=== PATIENT | male | born 1950 | race Caucasian/White ===

== ENCOUNTER 2020-01-16 11:50 | Inpatient (IN) | payer MEDICARE ==
[~2020-01-16] VITALS: Ht 188 cm; Wt 97.1 kg
[2020-01-16] MEDS ORDERED: FERR236T3 PO (12:08)
[2020-01-16] MEDS ORDERED: FOLI20CA PO (12:08)
[2020-01-16] MEDS ORDERED: TRAM50TA3 PO (12:08)
[2020-01-16] MEDS ORDERED: TAMS-11 PO (12:08)
[2020-01-16] MEDS ORDERED: PRED-431 PO (12:08)
[2020-01-16] MEDS ORDERED: CETI-338 PO (12:08)
[2020-01-16] MEDS ORDERED: SIMV-46 PO (12:08)
[2020-01-16] MEDS ORDERED: FISH GT (12:08)
[2020-01-16] MEDS ORDERED: MESA500C PO (12:08)
[2020-01-16] MEDS ORDERED: MULT-1241 PO (12:08)
[2020-01-16] MEDS ORDERED: ONDANSETRON HCL 4MG/2ML INJ IV STA (12:44)
[2020-01-16] MEDS ORDERED: SODIUM CHLORIDE 0.9% 1,000 ML IV ONE (12:44)
[2020-01-16] MEDS ORDERED: MORPHINE SULFATE 4 MG/ML CPJ (NOT FOR IM USE) IV STA (12:44)
[2020-01-16 13:05] LABS: BASOPHILS % 0.4 % (0.0-2.0); EOSINOPHILS % 1.2 % (0.0-5.0); HEMOGLOBIN. 11.8 g/dL (14.0-18.0); LYMPHOCYTES % 7.5 % (20.0-50.0); MEAN CORPUSCULAR HEMOGLOBIN 31.8 pg (28.0-32.0); MEAN CORPUSCULAR VOLUME 91.8 fL (80.0-94.0); MONOCYTES % 9.9 % (2.0-8.0); PLATELET 230 x1000/uL (130-400); RED CELL DISTRIBUTION WIDTH 12.9 % (11.6-14.6)
[2020-01-16 13:06] LABS: CLARITY URINE CLEAR (CLEAR); COLOR URINE YELLOW (YELLOW); KETONES URINE TRACE (NEGATIVE); LEUKOCYTE ESTERASE URINE 1+ (NEGATIVE); NITRITE URINE NEGATIVE (NEGATIVE); OCCULT BLOOD URINE NEGATIVE (NEGATIVE); PROTEIN URINE NEGATIVE (NEGATIVE); SPECIFIC GRAVITY URINE 1.026 (1.005-1.030); UROBILINOGEN URINE 0.2 E.U./dL (0.2-1.0)
[2020-01-16 13:08] LABS: CHLORIDE 110 mEq/L (98-107)
[2020-01-16 13:11] LABS: INR 1.1; PROTHROMBIN TIME 11.2 sec (9.6-11.0)
[2020-01-16] MEDS ORDERED: IOHEXOL-350 100 ML BOTTLE ONE (15:38)
[2020-01-16] MEDS ORDERED: ONDANSETRON HCL 4MG/2ML INJ IV PRN (16:00)
[2020-01-16] MEDS ORDERED: MORPHINE SULFATE 2 MG/ML CPJ (NOT FOR IM USE) IV PRN (16:00)
[2020-01-16] MEDS ORDERED: ACETAMINOPHEN 325MG TABLET PO PRN (16:00)
[2020-01-16] MEDS ORDERED: LEVOFLOXACIN 500MG PREMIX 100 ML IV SCH (17:00)
[2020-01-16] MEDS ORDERED: METRONIDAZOLE 500 MG PREMIX 100 ML IV SCH (17:00)
[2020-01-16 20:58] LABS: HEMATOCRIT 33.5 % (42.0-52.0); HEMOGLOBIN 11.6 g/dL (14.0-18.0); MEAN CORPUSCULAR HEMOGLOBIN 31.8 pg (28.0-32.0); PLATELET 226 x1000/uL (130-400); RED BLOOD CELL COUNT 3.64 mill/uL (4.7-6.1); RED CELL DISTRIBUTION WIDTH 13.3 % (11.6-14.6)
[2020-01-16 21:04] LABS: CHLORIDE 109 mEq/L (98-107)
[2020-01-16 21:10] LABS: TOTAL IRON BINDING CAPACITY 264 ug/dL (250-450)
[2020-01-16 22:40] VITALS: BP 158/84
[2020-01-16] MEDS ORDERED: IOHEXOL-300 100 ML BOTTLE ONE (23:03)
[2020-01-17] VITALS: BP_SYST 158; BP_SYST 161; BP_DIAS 83; BP_DIAS 84
[2020-01-17] MEDS: DEXT 5%/0.45% NACL 1000ML 1,000 ML IV SCH ×3 (00:03→17:30)
[2020-01-17] MEDS: METHYLPREDNISOLONE SOD SUCC 125 MG/2 ML VIAL IV SCH ×4 (00:13→21:38)
[2020-01-17] MEDS: MESALAMINE 400 MG CAPSULE.DR PO SCH ×4 (00:13→21:38)
[2020-01-17] MEDS: METRONIDAZOLE 500 MG PREMIX 100 ML IV SCH ×3 (01:15→19:25)
[2020-01-17 04:00] VITALS: BP 159/65
[2020-01-17 06:54] LABS: HEMATOCRIT. 33.8 % (42.0-52.0); HEMOGLOBIN. 11.8 g/dL (14.0-18.0); MEAN CORPUSCULAR HEMOGLOBIN 31.8 pg (28.0-32.0); MEAN CORPUSCULAR VOLUME 91.1 fL (80.0-94.0); MEAN PLATELET VOLUME 7.3 fl (7.4-10.4); PLATELET 219 x1000/uL (130-400); RED BLOOD CELL COUNT 3.71 mill/uL (4.7-6.1); RED CELL DISTRIBUTION WIDTH 13.1 % (11.6-14.6)
[2020-01-17 07:07] LABS: CHLORIDE 109 mEq/L (98-107)
[2020-01-17 08:00] VITALS: BP 133/74
[2020-01-17 12:00] VITALS: BP 146/78
[2020-01-17 16:00] VITALS: BP 143/70
[2020-01-17 20:00] VITALS: BP 146/81
[2020-01-17] MEDS: LEVOFLOXACIN 500MG PREMIX 100 ML IV SCH (20:44)
[2020-01-18] VITALS (7 sets, daily range): BP systolic 128–151; BP diastolic 70–83
[2020-01-18] MEDS: METRONIDAZOLE 500 MG PREMIX 100 ML IV SCH ×3 (02:48→17:19)
[2020-01-18 06:13] LABS: CHLORIDE 108 mEq/L (98-107)
[2020-01-18 06:23] LABS: HEMATOCRIT. 33.7 % (42.0-52.0); HEMOGLOBIN. 11.6 g/dL (14.0-18.0); MEAN CORPUSCULAR HEMOGLOBIN 31.6 pg (28.0-32.0); MEAN CORPUSCULAR VOLUME 91.7 fL (80.0-94.0); MEAN PLATELET VOLUME 7.7 fl (7.4-10.4); PLATELET 227 x1000/uL (130-400); RED BLOOD CELL COUNT 3.68 mill/uL (4.7-6.1); RED CELL DISTRIBUTION WIDTH 13.1 % (11.6-14.6)
[2020-01-18] MEDS: MESALAMINE 400 MG CAPSULE.DR PO SCH ×3 (07:02→21:47)
[2020-01-18] MEDS: METHYLPREDNISOLONE SOD SUCC 125 MG/2 ML VIAL IV SCH ×2 (07:03→17:19)
[2020-01-18] MEDS: DEXT 5%/0.45% NACL 1000ML 1,000 ML IV SCH ×2 (08:00→21:47)
[2020-01-18 09:26] LABS: PLATELET ESTIMATE NORMAL
[2020-01-18] MEDS: LEVOFLOXACIN 500MG PREMIX 100 ML IV SCH (21:47)
[2020-01-19] VITALS: BP 151/72
[2020-01-19 00:59] LABS: PLATELET ESTIMATE NORMAL
[2020-01-19] MEDS: METRONIDAZOLE 500 MG PREMIX 100 ML IV SCH ×3 (02:20→17:52)
[2020-01-19 04:00] VITALS: BP 146/79
[2020-01-19] MEDS: MESALAMINE 400 MG CAPSULE.DR PO SCH ×3 (06:31→22:00)
[2020-01-19] MEDS: METHYLPREDNISOLONE SOD SUCC 125 MG/2 ML VIAL IV SCH ×3 (06:32→22:01)
[2020-01-19 07:15] LABS: HEMATOCRIT. 34.9 % (42.0-52.0); HEMOGLOBIN. 11.9 g/dL (14.0-18.0); MEAN CORPUSCULAR HEMOGLOBIN 31.7 pg (28.0-32.0); MEAN CORPUSCULAR VOLUME 92.6 fL (80.0-94.0); MEAN PLATELET VOLUME 7.6 fl (7.4-10.4); PLATELET 244 x1000/uL (130-400); RED BLOOD CELL COUNT 3.77 mill/uL (4.7-6.1)
[2020-01-19 07:23] LABS: CHLORIDE 110 mEq/L (98-107)
[2020-01-19 08:00] VITALS: BP 118/79
[2020-01-19] MEDS: DEXT 5%/0.45% NACL 1000ML 1,000 ML IV SCH ×2 (10:06→22:00)
[2020-01-19 10:29] LABS: PLATELET ESTIMATE NORMAL
[2020-01-19 12:00] VITALS: BP 134/79
[2020-01-19 12:29] LABS: HEMATOCRIT 33.8 % (42.0-52.0); HEMOGLOBIN 11.5 g/dL (14.0-18.0)
[2020-01-19 16:00] VITALS: BP 162/86
[2020-01-19 20:00] VITALS: BP 139/79
[2020-01-19] MEDS: LEVOFLOXACIN 500MG PREMIX 100 ML IV SCH (21:59)
[2020-01-20] VITALS: BP 134/76
[2020-01-20] MEDS: METRONIDAZOLE 500 MG PREMIX 100 ML IV SCH ×2 (02:29→09:45)
[2020-01-20 04:00] VITALS: BP 143/80
[2020-01-20] MEDS: MESALAMINE 400 MG CAPSULE.DR PO SCH (06:18)
[2020-01-20] MEDS: METHYLPREDNISOLONE SOD SUCC 125 MG/2 ML VIAL IV SCH (06:20)
[2020-01-20 08:00] VITALS: BP 145/75
[2020-01-20 11:15] LABS: HEMATOCRIT. 34.8 % (42.0-52.0); MEAN CORPUSCULAR HEMOGLOBIN 31.9 pg (28.0-32.0); MEAN CORPUSCULAR VOLUME 92.1 fL (80.0-94.0); MEAN PLATELET VOLUME 7.6 fl (7.4-10.4); PLATELET 214 x1000/uL (130-400); RED BLOOD CELL COUNT 3.77 mill/uL (4.7-6.1); RED CELL DISTRIBUTION WIDTH 13.1 % (11.6-14.6)
[2020-01-20 11:29] LABS: CHLORIDE 104 mEq/L (98-107)
[2020-01-20 12:00] VITALS: BP 136/79
[2020-01-20] MEDS ORDERED: PRED-276 MT (12:36)
[2020-01-20] MEDS ORDERED: LEVO750T21 MT (12:36)
[2020-01-20] MEDS ORDERED: METR500T MT (12:36)
[2020-01-20 13:16] VITALS: BP 134/75
[2020-01-20] MEDS: DEXT 5%/0.45% NACL 1000ML 1,000 ML IV SCH (13:21)
[2020-01-20 14:02] LABS: PLATELET ESTIMATE NORMAL
== END 2020-01-20 14:19 | disposition home or self-care (01) | DRG 385 ==
LOC: ER 11:50 → 6EST 14:50 → EDBEDREQSVC 15:11 → EDBEDREQ 15:11 → ENRESERV 21:29
PROVIDERS: ADMIT Internal Medicine; ATTEND Internal Medicine
DX: K51.911 Ulcerative colitis, unspecified with rectal bleeding (principal); K57.33 Diverticulitis of large intestine without perforation or abscess with bleeding; E87.8 Other disorders of electrolyte and fluid balance, not elsewhere classified; E78.5 Hyperlipidemia, unspecified; N40.0 Benign prostatic hyperplasia without lower urinary tract symptoms; D64.9 Anemia, unspecified; E78.00 Pure hypercholesterolemia, unspecified; R16.0 Hepatomegaly, not elsewhere classified; Z79.899 Other long term (current) drug therapy
CPT/HCPCS: 36415; 71045; 74177; 78278; 80048; 80053; 81003; 83540; 83550; 83605; 85014; 85018; 85025; 85027; 85651; 93005; 99285; J1956; J2270; J2405; J2930; J3490; J7030; Q9967

== ENCOUNTER 2020-02-09 11:36 | Inpatient (IN) | payer MEDICARE, MEDICAID ==
[~2020-02-09] VITALS: Ht 188 cm; Wt 100.0 kg
[~2020-02-09 11:36] MED LIST: CETI-338 PO; FERR236T3 PO; FISH GT; FOLI20CA PO; LEVO750T21 MT; MESA500C PO; METR500T MT; MULT-1241 PO; PRED-276 MT; PRED-431 PO; SIMV-46 PO; TAMS-11 PO; TRAM50TA3 PO
[2020-02-09 12:29] LABS: CHLORIDE 104 mEq/L (98-107)
[2020-02-09 12:31] LABS: HEMATOCRIT. 37.5 % (42.0-52.0); HEMOGLOBIN. 12.7 g/dL (14.0-18.0); MEAN CORPUSCULAR VOLUME 88.8 fL (80.0-94.0); MEAN PLATELET VOLUME 7.2 fl (7.4-10.4); PLATELET 334 x1000/uL (130-400); RED BLOOD CELL COUNT 4.22 mill/uL (4.7-6.1); RED CELL DISTRIBUTION WIDTH 13.3 % (11.6-14.6)
[2020-02-09 12:58] LABS: INR 1.2; PROTHROMBIN TIME 12.4 sec (9.6-11.0)
[2020-02-09 13:05] LABS: PLATELET ESTIMATE NORMAL
[2020-02-09 14:24] LABS: CLARITY URINE CLOUDY (CLEAR); COLOR URINE AMBER (YELLOW); KETONES URINE 1+ (NEGATIVE); LEUKOCYTE ESTERASE URINE 2+ (NEGATIVE); NITRITE URINE POSITIVE (NEGATIVE); OCCULT BLOOD URINE NEGATIVE (NEGATIVE); PH URINE 5.5 (4.5-8.0); PROTEIN URINE 2+ (NEGATIVE); SPECIFIC GRAVITY URINE 1.026 (1.005-1.030)
[2020-02-09] MEDS ORDERED: IOHEXOL-300 100 ML BOTTLE ONE (15:54)
[2020-02-09] MEDS ORDERED: DIPHENHYDRAMINE 50MG/ML VIAL IV PRN (16:15)
[2020-02-09] MEDS ORDERED: CLONIDINE 0.1MG TABLET PO PRN (16:15)
[2020-02-09] MEDS ORDERED: HYDRALAZINE 20MG/ML VIAL IV PRN (16:15)
[2020-02-09] MEDS ORDERED: GUAIFENESIN 200MG/10ML SUGAR FREE UDC PO PRN (16:15)
[2020-02-09] MEDS ORDERED: MAGNESIUM/ALUMINUM HYDROXIDE/SIMETHICONE 30ML UDC PO PRN (16:15)
[2020-02-09] MEDS ORDERED: IPRATROPIUM/ALBUTEROL 0.5-3(2.5)MG/3ML NEB NEB PRN (16:15)
[2020-02-09] MEDS ORDERED: MORPHINE SULFATE 2 MG/ML CPJ (NOT FOR IM USE) IV PRN (16:15)
[2020-02-09] MEDS ORDERED: ACETAMINOPHEN 325MG TABLET PO PRN (16:15)
[2020-02-09] MEDS ORDERED: ONDANSETRON HCL 4MG/2ML INJ IV PRN (16:15)
[2020-02-09] MEDS ORDERED: LORAZEPAM 2MG/ML CPJ IV PRN (16:15)
[2020-02-09] MEDS ORDERED: HYDRALAZINE 10 MG in SODIUM CHLORIDE 0.9% 49.5 ML IV PRN (16:30)
[2020-02-09] MEDS: FAMOTIDINE 20MG/2ML VIAL IV SCH (17:01)
[2020-02-09] MEDS: DEXT 5%/0.45% NACL 1000ML 1,000 ML IV SCH (17:01)
[2020-02-09 17:49] LABS: AMYLASE 336 IU/L (25-115)
[2020-02-09] MEDS ORDERED: LEVOFLOXACIN 500MG PREMIX 100 ML IV SCH (18:00)
[2020-02-09] MEDS: MESALAMINE 400 MG CAPSULE.DR PO SCH (18:51)
[2020-02-09 19:26] LABS: HEMATOCRIT 37.1 % (42.0-52.0); HEMOGLOBIN 12.5 g/dL (14.0-18.0)
[2020-02-09] MEDS: METRONIDAZOLE 500 MG PREMIX 100 ML IV SCH (19:56)
[2020-02-09 20:00] VITALS: BP 109/67
[2020-02-09 20:34] LABS: HEMATOCRIT. 35.2 % (42.0-52.0); HEMOGLOBIN. 11.8 g/dL (14.0-18.0); MEAN CORPUSCULAR HEMOGLOBIN 30.3 pg (28.0-32.0); MEAN CORPUSCULAR VOLUME 90.2 fL (80.0-94.0); MEAN PLATELET VOLUME 6.8 fl (7.4-10.4); PLATELET 317 x1000/uL (130-400); RED BLOOD CELL COUNT 3.91 mill/uL (4.7-6.1); RED CELL DISTRIBUTION WIDTH 13.5 % (11.6-14.6)
[2020-02-09] MEDS: CEFAZOLIN 1000MG PREMIX 50 ML IV SCH (21:16)
[2020-02-09] MEDS ORDERED: SODIUM CHLORIDE 0.45% 500 ML IV NR (21:30)
[2020-02-09 21:47] LABS: PLATELET ESTIMATE NORMAL
[2020-02-09 23:41] LABS: CHLORIDE 104 mEq/L (98-107)
[2020-02-09 23:45] LABS: AMYLASE 182 IU/L (25-115)
[2020-02-10] VITALS (7 sets, daily range): BP systolic 101–138; BP diastolic 51–85
[2020-02-10] MEDS: DEXT 5%/0.45% NACL 1000ML 1,000 ML IV SCH ×3 (02:30→21:38)
[2020-02-10] MEDS ORDERED: HYDRALAZINE 20MG/ML VIAL IV PRN (02:45)
[2020-02-10] MEDS: METRONIDAZOLE 500 MG PREMIX 100 ML IV SCH ×3 (03:29→19:44)
[2020-02-10] MEDS: MESALAMINE 400 MG CAPSULE.DR PO SCH ×3 (09:00→18:45)
[2020-02-10] MEDS: FAMOTIDINE 20MG/2ML VIAL IV SCH (09:00)
[2020-02-10] MEDS: CEFAZOLIN 1000MG PREMIX 50 ML IV SCH ×2 (09:00→21:37)
[2020-02-10] MEDS: ERYTHROMYCIN BASE 0.5% OPHTH OINT 3.5GM BOTHEYE SCH ×2 (13:43→21:51)
[2020-02-10 13:56] LABS: HEMATOCRIT. 33.7 % (42.0-52.0); HEMOGLOBIN. 11.4 g/dL (14.0-18.0); MEAN CORPUSCULAR HEMOGLOBIN 30.1 pg (28.0-32.0); MEAN CORPUSCULAR VOLUME 89.3 fL (80.0-94.0); MEAN PLATELET VOLUME 7.1 fl (7.4-10.4); PLATELET 256 x1000/uL (130-400); RED BLOOD CELL COUNT 3.77 mill/uL (4.7-6.1); RED CELL DISTRIBUTION WIDTH 13.7 % (11.6-14.6)
[2020-02-10 14:06] LABS: CHLORIDE 105 mEq/L (98-107)
[2020-02-10 14:10] LABS: CHLORIDE 105 mEq/L (98-107)
[2020-02-10 14:15] LABS: AMYLASE 378 IU/L (25-115)
[2020-02-10 14:17] LABS: LDL CHOLESTEROL 44 mg/dL (5-100)
[2020-02-10 14:18] LABS: HDL CHOLESTEROL 36 mg/dL (40-59)
[2020-02-10 14:19] LABS: PLATELET ESTIMATE NORMAL
[2020-02-10] MEDS ORDERED: ACETAMINOPHEN 325MG TABLET PO PRN ×2 (19:15→20:15)
[2020-02-10] MEDS ORDERED: POTASSIUM CHLORIDE 20MEQ TABLET SR PO NR (21:00)
[2020-02-11] VITALS: BP 141/72
[2020-02-11 04:00] VITALS: BP 138/72
[2020-02-11] MEDS: METRONIDAZOLE 500 MG PREMIX 100 ML IV SCH ×3 (04:12→20:41)
[2020-02-11] MEDS: ERYTHROMYCIN BASE 0.5% OPHTH OINT 3.5GM BOTHEYE SCH ×3 (06:31→21:40)
[2020-02-11 07:14] LABS: CHLORIDE 107 mEq/L (98-107)
[2020-02-11 07:43] VITALS: BP 119/70
[2020-02-11] MEDS: FAMOTIDINE 20MG/2ML VIAL IV SCH (09:24)
[2020-02-11] MEDS: DEXT 5%/0.45% NACL 1000ML 1,000 ML IV SCH ×2 (09:24→18:30)
[2020-02-11] MEDS: CEFAZOLIN 1000MG PREMIX 50 ML IV SCH ×2 (09:24→21:40)
[2020-02-11] MEDS: MESALAMINE 400 MG CAPSULE.DR PO SCH ×3 (09:24→17:48)
[2020-02-11 11:21] LABS: HEMATOCRIT. 29.6 % (42.0-52.0); HEMOGLOBIN. 10.1 g/dL (14.0-18.0); MEAN CORPUSCULAR VOLUME 87.7 fL (80.0-94.0); MEAN PLATELET VOLUME 6.7 fl (7.4-10.4); PLATELET 252 x1000/uL (130-400); RED BLOOD CELL COUNT 3.37 mill/uL (4.7-6.1); RED CELL DISTRIBUTION WIDTH 13.4 % (11.6-14.6)
[2020-02-11 11:32] LABS: AMYLASE 252 IU/L (25-115)
[2020-02-11 11:56] LABS: CHLORIDE 108 mEq/L (98-107)
[2020-02-11 11:59] VITALS: BP 115/69
[2020-02-11] MEDS ORDERED: POTASSIUM CHLORIDE INJ 40 MEQ in DEXT 5% WATER 250 ML IV NR (13:00)
[2020-02-11 13:07] LABS: INR 1.2; PARTIAL THROMBOPLASTIN TIME 30.2 sec (23.4-31.0)
[2020-02-11 14:19] LABS: PLATELET ESTIMATE NORMAL
[2020-02-11 15:40] VITALS: BP 109/68
[2020-02-11] MEDS ORDERED: SORBITOL 70% SOLN 30ML PO NR ×2 (16:00→20:00)
[2020-02-11] MEDS: MORPHINE SULFATE 4 MG/ML CPJ (NOT FOR IM USE) IV PRN (17:50)
[2020-02-11 20:00] VITALS: BP 112/64
[2020-02-12] VITALS: BP 110/71
[2020-02-12] MEDS ORDERED: SORBITOL 70% SOLN 30ML PO NR
[2020-02-12 04:00] VITALS: BP 118/70
[2020-02-12] MEDS: METRONIDAZOLE 500 MG PREMIX 100 ML IV SCH ×3 (04:26→20:15)
[2020-02-12] MEDS: DEXT 5%/0.45% NACL 1000ML 1,000 ML IV SCH ×2 (04:27→14:18)
[2020-02-12] MEDS: ERYTHROMYCIN BASE 0.5% OPHTH OINT 3.5GM BOTHEYE SCH ×3 (06:01→21:29)
[2020-02-12] MEDS ORDERED: NA PHOS,M-B/NA PHOS,DI-BA ENEMA 118ML PR NR (07:00)
[2020-02-12] MEDS: MESALAMINE 400 MG CAPSULE.DR PO SCH ×3 (07:50→17:50)
[2020-02-12 07:52] VITALS: BP 109/71
[2020-02-12] MEDS: FAMOTIDINE 20MG/2ML VIAL IV SCH (08:59)
[2020-02-12] MEDS: CEFAZOLIN 1000MG PREMIX 50 ML IV SCH ×2 (09:54→21:29)
[2020-02-12] MEDS: MORPHINE SULFATE 4 MG/ML CPJ (NOT FOR IM USE) IV PRN (09:59)
[2020-02-12 12:00] VITALS: BP 115/68
[2020-02-12] MEDS ORDERED: POTASSIUM CHLORIDE 20MEQ TABLET SR PO NR (13:36)
[2020-02-12 16:00] VITALS: BP 120/72
[2020-02-12] MEDS ORDERED: FENTANYL CITRATE/PF 50MCG/ML 2ML VIAL IV PRN (17:39)
[2020-02-12] MEDS ORDERED: MIDAZOLAM HCL 2 MG/2 ML VIAL IV PRN (17:41)
[2020-02-12] MEDS ORDERED: MIDAZOLAM HCL 5 MG/5 ML VIAL ONE (17:42)
[2020-02-12] MEDS ORDERED: FENTANYL CITRATE/PF 50MCG/ML 2ML VIAL ONE (17:42)
[2020-02-12 20:50] VITALS: BP 135/77
[2020-02-12] MEDS: METHYLPREDNISOLONE SOD SUCC 125 MG/2 ML VIAL IV SCH (21:29)
[2020-02-13 00:41] VITALS: BP 117/77
[2020-02-13] MEDS: DEXT 5%/0.45% NACL 1000ML 1,000 ML IV SCH ×3 (00:46→20:09)
[2020-02-13] MEDS: METRONIDAZOLE 500 MG PREMIX 100 ML IV SCH (04:08)
[2020-02-13 04:54] VITALS: BP 131/70
[2020-02-13] MEDS: METHYLPREDNISOLONE SOD SUCC 125 MG/2 ML VIAL IV SCH ×3 (06:06→21:18)
[2020-02-13] MEDS: ERYTHROMYCIN BASE 0.5% OPHTH OINT 3.5GM BOTHEYE SCH ×3 (06:18→21:18)
[2020-02-13 08:00] VITALS: BP 124/77
[2020-02-13] MEDS: FAMOTIDINE 20MG/2ML VIAL IV SCH (08:26)
[2020-02-13] MEDS: CEFAZOLIN 1000MG PREMIX 50 ML IV SCH ×2 (08:26→20:09)
[2020-02-13] MEDS: MESALAMINE 400 MG CAPSULE.DR PO SCH ×3 (08:26→17:56)
[2020-02-13 16:00] VITALS: BP 122/74
[2020-02-13 20:00] VITALS: BP 133/71
[2020-02-14] VITALS: BP 136/75
[2020-02-14 04:00] VITALS: BP 138/71
[2020-02-14] MEDS: METHYLPREDNISOLONE SOD SUCC 125 MG/2 ML VIAL IV SCH ×3 (05:34→20:59)
[2020-02-14] MEDS: ERYTHROMYCIN BASE 0.5% OPHTH OINT 3.5GM BOTHEYE SCH ×3 (06:00→20:59)
[2020-02-14] MEDS: DEXT 5%/0.45% NACL 1000ML 1,000 ML IV SCH ×2 (06:30→16:24)
[2020-02-14 08:00] VITALS: BP 122/71
[2020-02-14] MEDS: CEFAZOLIN 1000MG PREMIX 50 ML IV SCH (08:41)
[2020-02-14] MEDS: FAMOTIDINE 20MG/2ML VIAL IV SCH (08:42)
[2020-02-14] MEDS: MESALAMINE 400 MG CAPSULE.DR PO SCH ×3 (08:42→16:23)
[2020-02-14 12:00] VITALS: BP 143/75
[2020-02-14 16:00] VITALS: BP 123/84
[2020-02-14 20:21] VITALS: BP 139/94
[2020-02-15] VITALS: BP 153/75
[2020-02-15 04:00] VITALS: BP 130/67
[2020-02-15] MEDS: METHYLPREDNISOLONE SOD SUCC 125 MG/2 ML VIAL IV SCH (05:08)
[2020-02-15] MEDS: ERYTHROMYCIN BASE 0.5% OPHTH OINT 3.5GM BOTHEYE SCH (05:08)
[2020-02-15] MEDS: DEXT 5%/0.45% NACL 1000ML 1,000 ML IV SCH ×2 (05:11→12:30)
[2020-02-15 08:00] VITALS: BP 125/70
[2020-02-15] MEDS: FAMOTIDINE 20MG/2ML VIAL IV SCH (08:27)
[2020-02-15] MEDS: MESALAMINE 400 MG CAPSULE.DR PO SCH ×2 (08:27→13:08)
[2020-02-15 12:00] VITALS: BP 121/75
[2020-02-15 13:23] VITALS: BP 121/75
== END 2020-02-15 14:00 | disposition home or self-care (01) | DRG 871 ==
LOC: ER 11:59 → ENRESERV 14:12 → SUPCPDRO 14:26 → 6EST 15:47 → 6WST 02-10 01:25
PROVIDERS: ADMIT Internal Medicine; ATTEND Internal Medicine
PROC: 0DBP8ZX Excision of Rectum, Via Natural or Artificial Opening Endoscopic, Diagnostic (ICD-10-PCS; principal; 2020-02-12)
PROC: 0DBN8ZX Excision of Sigmoid Colon, Via Natural or Artificial Opening Endoscopic, Diagnostic (ICD-10-PCS; 2020-02-12)
DX: A41.9 Sepsis, unspecified organism (principal); K85.90 Acute pancreatitis without necrosis or infection, unspecified; I50.33 Acute on chronic diastolic (congestive) heart failure; N39.0 Urinary tract infection, site not specified; K57.32 Diverticulitis of large intestine without perforation or abscess without bleeding; K51.911 Ulcerative colitis, unspecified with rectal bleeding; K64.9 Unspecified hemorrhoids; D64.9 Anemia, unspecified; E78.5 Hyperlipidemia, unspecified; K57.30 Diverticulosis of large intestine without perforation or abscess without bleeding; K76.0 Fatty (change of) liver, not elsewhere classified; K62.89 Other specified diseases of anus and rectum; N40.0 Benign prostatic hyperplasia without lower urinary tract symptoms; R73.9 Hyperglycemia, unspecified; E87.6 Hypokalemia; I11.0 Hypertensive heart disease with heart failure; I27.20 Pulmonary hypertension, unspecified; H10.9 Unspecified conjunctivitis; I07.1 Rheumatic tricuspid insufficiency
CPT/HCPCS: 36415; 71045; 74177; 76700; 80048; 80053; 80061; 81003; 82150; 82270; 83605; 84145; 84153; 84439; 84443; 85014; 85018; 85025; 85651; 86850; 86900; 87015; 87045; 87427; 87449; 87493; 88305; 89055; 93005; 93306; 99285; J0690; J1956; J2250; J2270; J2930; J3010; J3480; J3490; J7060; Q9967; G0103